=== PATIENT | female | born 1955 | race Caucasian/White ===

== ENCOUNTER 2020-06-16 11:52 | Emergency (ER) | payer MEDICARE, MEDICAID, SELFPAY ==
--- NOTE | ~2020-06-16 | XR_ITS ---
EXAMINATION: XR chest 2V DATE: 06/16/2020 13:02 INDICATION: Weakness and slurred speech TECHNIQUE: frontal and lateral views of the chest were obtained. COMPARISON: None FINDINGS: There are a few small bilateral calcified pulmonary nodules consistent with old granulomatous disease . Minimal linear discoid atelectasis in the right mid and lower lung zones. No other airspace opaciti es, pulmonary edema, pleural effusion or pneumothorax. The cardiomediastinal silhouette is normal. Mo derate thoracic spondylosis. Surgical clip in the upper abdomen which may be related to prior cholecy stectomy. IMPRESSION: 1. No acute cardiopulmonary disease. Reviewed, dictated and finalized at location A.
--- NOTE | ~2020-06-16 | CT_ITS ---
EXAMINATION: CT brain wo con EXAM DATE: 06/16/2020 12:54 INDICATION: Stroke, headache, weakness. Blurred vision. Numbness. TECHNIQUE: Spiral CT of the head was performed without contrast. Axial, coronal and sagittal images were reviewed. The dose-length product (DLP) for this examination was 605.33 mGy-cm. The exposure w as tailored according to patient size, and iterative reconstruction (ASIR) was used as additional dos e reduction technique. There is no prior study for comparison. FINDINGS: There is circumscribed fluid density region centered in the right parietal lobe measuring 5 .9 x 3.5 cm, with a peripheral rind of soft tissue density. Large amount of associated vasogenic liban a. There is effacement of the right-sided sulci and 9 mm of leftward subfalcine herniation. Mass effe ct on the right lateral ventricle with occipital horn, posterior aspect collapsed. The right temporal horn is only slightly more dilated than the contralateral side. There is no transtentorial herniatio n. Disconjugate gaze. No extra-axial collections or acute intracranial hemorrhage. Orbits and soft ti ssues are unremarkable. IMPRESSION: Large cystic right parietal mass, associated edema, mass effect, some contralateral midli ne shift. Differential diagnosis includes necrotic metastatic lesion, necrotic primary CORROSION TECHNICIAN neoplasm, abscess. Brain MRI without and with contrast is indicated as well as neurosurgical consult. Reviewed, dictated and finalized at location A. IMPRESSION: Large cystic right parietal mass, associated edema, mass effect, so me contralateral midline shift. Differential diagnosis includes necrotic metast atic lesion, necrotic primary CORROSION TECHNICIAN neoplasm, abscess. Brain MRI without and with contrast is indicated as well as neurosurgical consult.
[2020-06-16 11:58] VITALS: BP 144/91; PULSE 92; RESP 18; TEMP 36.3; O2SAT 100
--- NOTE | 2020-06-16 11:58 | ECG_ITS ---
Measurements Intervals [place] Rate: 89 P: 17 GA: 113 QRS: 65 QRSD: 92 T: 52 QT: 374 QTc: 456 Interpretive Statements SINUS RHYTHM WITH SHORT GA INTERVAL INCOMPLETE RIGHT BUNDLE BRANCH BLOCK BORDERLINE T WAVE ABNORMALITY- ANTERIOR LEADS BORDERLINE ECG Electronically Signed On 06-16-2020 12:23:55 CDT by Rigo Kenney D.O.
[2020-06-16 12:45] LABS: Basophils Absolute Auto 0.1 K/mm3 (0.0-0.1); Basophils Percent Auto 0.6 % (0.2-1.2); Eosinophils Absolute Auto 0.1 K/mm3 (0-0.3); Eosinophils Percent Auto 0.7 % (0-4.4); Hematocrit 50.3 % (37.0-47.0); Hemoglobin 17.4 g/dL (12.0-15.0); Immature Granulocyte Absolute 0.05 K/mm3 (0.00-0.031); Immature Granulocyte Percent A 0.5 % (0-0.5); Lymphocytes Absolute Auto 1.67 K/mm3 (0.9-3.2); Mean Corpuscular HGB Conc 34.6 g/dl (32-36); Mean Corpuscular Hemoglobin 30.6 pg (26-34); Mean Corpuscular Volume 88.4 fl (80-100); Mean Platelet Volume 11.9 fl (7.4-10.4); Monocytes Absolute Auto 0.9 K/mm3 (0.1-0.6); Monocytes Percent Auto 8.6 % (2.6-8.5); Neutrophils Absolute Auto 7.7 K/mm3 (1.3-6.7); Neutrophils Percent Auto 73.6 % (45.5-73.1); Platelet Count Result 157 k/mm3 (150-375); Red Blood Count 5.69 M/mm3 (4.2-5.4); Red Cell Distribution Width 11.9 % (11.5-14.5); White Blood Count 10.5 K/mm3 (4.5-10.0)
[2020-06-16 13:07] LABS: Alanine Aminotransferase 37 U/L (4-35); Albumin Level 4.7 g/dL (3.5-5.1); Alkaline Phosphatase 51 U/L (38-126); Anion Gap 8 mmol/L (8-16); Aspartate Amino Transferase 36 U/L (14-36); Bilirubin,Total 0.8 mg/dL (0.2-1.3); Blood Urea Nitrogen 15 mg/dL (7-17); Calcium 9.6 mg/dL (8.4-10.2); Carbon Dioxide 33 mmol/L (22-30); Chloride 96 mmol/L (98-107); Estimated CRCL calculation 55 ml/min; Estimated Glomerular Filt Rate > 60; Glucose 105 mg/dL (65-105); Potassium 3.4 mmol/L (3.4-5.0); Sodium 137 mmol/L (137-145)
[2020-06-16 13:31] LABS: Add Urine Microscopic? YES; Appearance Urine Clear (Clear); Bilirubin Urine Negative (Negative); Blood Urine Negative (Negative); Color Urine Yellow (Yellow); Glucose Urine UA Negative (Negative); Ketones Urine Negative (Negative); Leukocyte Esterase Ur 3+ LEU/UL (Negative); Mucus Urine Few /lpf; Nitrate Urine Negative (Negative); Protein Urine Negative (Negative); RBC Urine 0-2 /hpf (0-2); Specific Grav Ur 1.013 (1.001-1.035); Squamous Epithelial Cell Urine Few /hpf (Few); Transitional Epi Cells Urine Rare /hpf (None Seen); Urobilinogen Urine Negative mg/dL (<2.0); WBC Urine 51-75 /hpf
[2020-06-16 13:43] VITALS: BP 123/88; PULSE 86; RESP 21; O2SAT 100
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
[2020-06-16] MEDS: DEXAMETHASONE SOD PHOS INJ 4 MG/ML VIAL 10 MG IV PUSH (14:40)
[2020-06-16] MEDS: MORPHINE SULFATE (*CRX) 2 MG/ML INJ IV PUSH ×2 (15:22→19:45)
--- NOTE | 2020-06-16 16:02 | PC.NURSE ---
spoke with [facility] to get update.
[2020-06-16 16:03] VITALS: BP 162/89; PULSE 87; RESP 18; TEMP 36.5; O2SAT 97
--- NOTE | 2020-06-16 17:15 | PC.NURSE ---
[facility] [id number], Call report to [phone].
--- NOTE | 2020-06-16 17:23 | PC.NURSE ---
rn attempted to contact caleb to give nurse report. Caleb states nurse doesnt know they are getting a pt, you need to call back in a half an hour.
[2020-06-16 19:46] VITALS: BP 120/88; PULSE 85; RESP 18; O2SAT 100
[2020-06-16 21:49] VITALS: BP 142/87; PULSE 99; RESP 18; O2SAT 81
== END 2020-06-16 21:53 | disposition short-term general hospital (02) ==
PROVIDERS: Emergency Medicine; Emergency Provider Emergency Medicine; PCP Family Medicine Sports Medicine
DX: G93.9 Disorder of brain, unspecified (principal); Z85.118 Personal history of other malignant neoplasm of bronchus and lung; Z86.73 Personal history of transient ischemic attack (TIA), and cerebral infarction without residual deficits; Z79.82 Long term (current) use of aspirin; F17.290 Nicotine dependence, other tobacco product, uncomplicated; I45.10 Unspecified right bundle-branch block; R94.31 Abnormal electrocardiogram [ECG] [EKG]; R82.998 Other abnormal findings in urine
CPT/HCPCS: 36415; 70450; 71046; 80053; 81001; 85025; 87086; 87088; 93005; 96374; 96375; 96376; 99285; J1100; J2270